=== PATIENT | female | born 1980 | race African-American/Black ===

== ENCOUNTER 2023-06-21 20:27 | Emergency (ER) | payer MEDICAID ==
[~2023-06-21] VITALS: Ht 170.2 cm; Wt 73.0 kg
[~2023-06-21 20:27] MED LIST: ABILIFY
[2023-06-21 20:34] VITALS: BP 126/80; PULSE 87; RESP 16; O2SAT 98
[2023-06-21 20:45] VITALS: TEMP 98.2
[2023-06-21] MEDS ORDERED: ACETAMINOPHEN 325MG TABLET PO ONE (20:45)
== END 2023-06-22 00:41 | disposition home or self-care (01) ==
LOC: ER 20:27
DX: S09.90XA Unspecified injury of head, initial encounter (principal); W01.0XXA Fall on same level from slipping, tripping and stumbling without subsequent striking against object, initial encounter; Y93.89 Activity, other specified; Y92.89 Other specified places as the place of occurrence of the external cause; Y99.8 Other external cause status
CPT/HCPCS: 99284